=== PATIENT | male | born 1950 | race Caucasian/White ===

== ENCOUNTER 2017-05-09 07:41 | Outpatient (CLI) | payer MEDICARE, OTHER ==
--- NOTE | 2017-05-09 18:32 | CT ---
CT OF THE ABDOMEN AND PELVIS WITH AND WITHOUT CONTRAST AND FURTHER RECONSTRUCTIONS: Date: 05/09/17 The clinical history received was left renal mass. I do not have any prior imaging studies in his fi le to compare with. Initially, axial slices were acquired as a noncontrast study. Following this, IV contrast was injected. Venous phase images were obtained and then a 4 minute delayed image set was obtained. Subsequently, sagittal and coronal reconstructions were done on various runs. I do not appreciate any mass in either kidney. The renal margins are perhaps a little irregular. Thi s could be developmental or due to prior infection. Minor amounts of perinephric stranding are prese nt bilaterally. I would comment that the patient may have somewhat prominent renal columns of Maximino , but no mass or area of abnormal enhancement was seen on any imaging sequence. No obstruction, sherita l or ureteral calculi, or other findings of great concern were found. The lung bases are clear. The liver, spleen, pancreas, adrenal glands, and abdominal aorta show no a cute findings. There has been a prior cholecystectomy. The bowel shows no sign of obstruction, inflammatory change, or bowel wall thickening. No free air o r free fluid was evident. CT of the pelvis was remarkable only for an enlarged prostate that was a little over 6.[address] No pelvic masses, fluid collections, or inflammatory changes were seen. IMPRESSION: 1. No renal mass was detected. I do not know the origin of the report of such. If there are other i maging studies to compare with, they could be useful, but this exam was completely unremarkable in t erms of any hint of a mass. The patient does have mildly prominent renal column, left more than righ t. 2. Prostatic enlargement. 3. No significant acute abdominal or pelvic findings. POS: HOME
== END 2017-05-09 07:42 | disposition home or self-care (01) ==
LOC: BURCT 07:41
PROVIDERS: ATTEND Urology
DX: Z01.818 Encounter for other preprocedural examination (principal); N28.89 Other specified disorders of kidney and ureter; N40.0 Benign prostatic hyperplasia without lower urinary tract symptoms
CPT/HCPCS: 36415; 74178; 82565

== ENCOUNTER 2018-11-17 15:10 | Outpatient (CLI) | payer MEDICARE ==
--- NOTE | 2018-11-17 18:00 | RAD ---
LEFT RIBS WITH PA CHEST: 11/17/2018 COMPARISON: 09/30/2010 FINDINGS: The heart is mildly to moderately enlarged but unchanged in size over the interval. There is no franklin estive change or pleural effusion. The lungs are clear. Regarding the ribs, no fractures or areas o f bony destruction are seen. All ribs appear intact. An incidental finding is the suggestion of manoj ateral carotid artery calcifications. IMPRESSION: Cardiomegaly but no significant change since 2009. POS: HOME
== END 2018-11-17 15:11 | disposition home or self-care (01) ==
LOC: BURRAD 15:10
PROVIDERS: ATTEND Family Medicine
DX: R07.81 Pleurodynia (principal); I51.7 Cardiomegaly

== ENCOUNTER 2022-03-26 10:26 | Emergency (ER) | payer OTHER, MEDICARE ==
[2022-03-26] MEDS ORDERED: Lidocaine 2% w/Epinephrine 1:200K 20 ML VIAL ONE (10:41)
[2022-03-26] MEDS ORDERED: Bacitracin 1 PK ONE (10:41)
[2022-03-26] MEDS ORDERED: Boostrix 0.5 ML (Tdap) VIAL ONE (11:03)
== END 2022-03-26 11:15 | disposition home or self-care (01) ==
LOC: BURERS 10:26
DX: S51.812A Laceration without foreign body of left forearm, initial encounter (principal); E05.90 Thyrotoxicosis, unspecified without thyrotoxic crisis or storm; E11.9 Type 2 diabetes mellitus without complications; E78.5 Hyperlipidemia, unspecified; E78.00 Pure hypercholesterolemia, unspecified; I10 Essential (primary) hypertension; Z23 Encounter for immunization; W01.118A Fall on same level from slipping, tripping and stumbling with subsequent striking against other sharp object, initial encounter
CPT/HCPCS: 12001; 90471; 90715

== ENCOUNTER 2023-01-13 13:13 | Emergency (ER) | payer MEDICARE ==
[2023-01-13] MEDS ORDERED: Aspirin Chewable 81 MG TAB ONE (13:28)
[2023-01-13] MEDS ORDERED: Nitroglycerin 2% Ointment 1 INCH/1 GM Packet ONE (13:31)
[2023-01-13] MEDS ORDERED: Nitroglycerin 0.4 MG TAB 1 EACH ONE (13:31)
[2023-01-13 13:47] LABS: Hemoglobin 14.9 g/dL (14.0-18.0); Mean Corpuscular HGB CONC 32.8 g/dL (32.0-36.0); Mean Corpuscular Hemoglobin 31.8 pg (27.0-31.0); Mean Corpuscular Volume 96.7 fl (78.0-98.0); Mean Platelet Volume 7.5 fL (7.4-10.4); Platelet Count 213 10x3/uL (130-400); RBC Distribution Width 11.7 % (11.5-14.5); Red Blood Cell (RBC) Count 4.68 mill/uL (4.70-6.10); White Blood Cell (WBC) Count 3.2 10x3/uL (4.8-10.8)
[2023-01-13 13:56] LABS: ALT (SGPT) 24 U/L (8-55); AST (SGOT) 23 U/L (5-34); Alkaline Phosphatase 105 U/L (40-110); Anion Gap 15 mmol/L (10-20); BUN (Urea Nitrogen) 21 mg/dL (8.4-25.7); Bilirubin, Total 0.9 mg/dL (0.2-1.2); Calc. Creatinine Clearance 0 mL/min (70-130); Calcium 8.7 mg/dL (7.8-10.44); Carbon Dioxide 18 mmol/L (23-31); Chloride 110 mmol/L (98-107); Estimated GFR 87; Globulin 2.9 g/dL (2.4-3.5); Glucose 149 mg/dL (83-110); Potassium 4.1 mmol/L (3.5-5.1); Protein, Total 6.9 g/dL (5.8-8.1); Sodium 139 mmol/L (136-145)
[2023-01-13 14:13] LABS: CKMB 1.7 ng/mL (0-6.6)
[2023-01-13 14:28] LABS: Band 16 % (5-11); Eosinophils 2 % (0-10); Lymphocytes 11 % (21-51); MDiff Complete? YES; Monocytes 22 % (0-10); Neutrophil 42 % (42-75); Reactive Lymphocytes 4 % (0-10)
[2023-01-13 15:00] LABS: Troponin I 0.058 ng/mL (< 0.028)
== END 2023-01-13 14:50 | disposition home or self-care (01) ==
LOC: BURERS 13:13
DX: R07.89 Other chest pain (principal); E05.90 Thyrotoxicosis, unspecified without thyrotoxic crisis or storm; E11.9 Type 2 diabetes mellitus without complications; E78.00 Pure hypercholesterolemia, unspecified; I10 Essential (primary) hypertension; Z79.899 Other long term (current) drug therapy; Z79.84 Long term (current) use of oral hypoglycemic drugs
CPT/HCPCS: 36415; 71045; 80053; 82553; 83880; 84484; 85025